=== PATIENT | male | born 1995 | race Caucasian/White ===

== ENCOUNTER 2023-08-17 16:52 | Emergency (ER) | payer OTHER ==
[~2023-08-17] VITALS: Ht 170.2 cm; Wt 75.0 kg
[2023-08-17 17:02] VITALS: TEMP 97.8; O2SAT 98
[2023-08-17 17:45] VITALS: BP 146/86; PULSE 76; RESP 18
[2023-08-17] MEDS ORDERED: BACITRACIN ZINC OINT UDPKT TOP ONE (17:45)
[2023-08-17] MEDS ORDERED: IBUPROFEN 600MG TABLET PO ONE (17:45)
[2023-08-17] MEDS ORDERED: IBUP-2028 MT (17:50)
== END 2023-08-17 19:58 ==
LOC: ER 16:52
DX: S09.90XA Unspecified injury of head, initial encounter (principal); V49.49XA Driver injured in collision with other motor vehicles in traffic accident, initial encounter; Y93.89 Activity, other specified; Y92.89 Other specified places as the place of occurrence of the external cause; Y99.8 Other external cause status
CPT/HCPCS: 99284